=== PATIENT | male | born 1955 | race Caucasian/White ===

== ENCOUNTER 2024-12-19 18:09 | Emergency (ER) | payer MEDICARE ==
[~2024-12-19] VITALS: Ht 172.7 cm; Wt 56.2 kg
[2024-12-19] MEDS ORDERED: APIX5TAB5 PEG (20:05)
[2024-12-19] MEDS ORDERED: DILT90TA PO (20:08)
[2024-12-19] MEDS ORDERED: DORZ10DR10 LEFTEYE (20:10)
[2024-12-19] MEDS ORDERED: DORZ10DR10 RIGHTEYE (20:10)
[2024-12-19] MEDS ORDERED: FURO-149 IV (20:13)
--- NOTE | 2024-12-19 20:14 | Physician Documentation ---
History of Present Illness ~ Chief Complaint: Shoulder pain Stated Complaint: SHOULDER DISLOCATION Time Seen by MD: 20:13 HPI Patient presents to the emergency room sent from [facility] for dislocated left shoulder. This is reported to has been from a fall several days ago. He was sent from [place] to [facility] from this said fall however he states no x-ray was performed. He states that he was change sign on a tree when he fell causing his injury however when nurse asked him about this he said he was 14 years old with an happened. Medication Reconciliation Allergies: Coded Allergies: Penicillins (Verified Allergy, Unknown, 12/19/24) Scheduled Apixaban (Eliquis), 1 TAB PEG BID, (Reported) Diltiazem HCl (Diltiazem HCl), 1 TAB PO QID, (Reported) Dorzolamide HCl/Timolol Maleat (Dorzolamide-Timolol Eye Drops), 1 DROP RIGHTEYE Q12H, (Reported) Dorzolamide HCl/Timolol Maleat (Dorzolamide-Timolol Eye Drops), 1 DROP LEFTEYE Q12H, (Reported) Furosemide (Lasix), 40 MG IV BID, (Reported) Lansoprazole (Lansoprazole), 1 TAB PO DAILY, (Reported) Latanoprost (XALATAN ophth drops), 1 DROP OP HS, (Reported) Review of Systems ROS All review of systems negative except as per HPI Physical Exam Vital Signs: Temperature: 98.5, Source: Oral, Heart Rate: 81, Respiratory Rate: 18, BP: 108/75, Pulse Oximetry: 98, Weight: 56.200 Oxygen Flow Rate: 2.0 Physical Exam General: Patient is awake, alert, cooperative in mild distress Head: Normocephalic and atraumatic. Eyes: Conjunctival normal. EOMI. PERRL. ENT: Mucous membranes moist. Neck: Supple, trachea is midline. Chest: Clear to auscultation bilaterally without rales, rhonchi, or wheezes. There is no accessory muscle use or retractions. Cardiac: RRR without murmurs, gallops, or rubs. Extremities: Patient has a ecchymosis to the anterior of his left shoulder diffusely as well as deformity noted to his left collarbone and pain with any manipulation of his left arm. No evidence of head trauma. Progress Progress Note We spoke with Raegan and they state that he initially fell out of a tree November 21 and required intubation. He was sent to [facility] on the . He was then extubated three days ago and since that time he has been talking about left shoulder pain and which time they performed the x-ray showing dislocation. Viibryd denies any falls. Results/Orders Results/Orders Orders - BUBBA YEE MD Shoulder, Complete (Min 2 Vws) (12/19/24 20:21) Clavicle (12/19/24 20:21) Urinalysis, Cult If Indicated (12/19/24 20:39) Ct Head (12/19/24 20:39) Ct Upper Extremities (12/19/24 20:39) Completed Orders - BUBBA YEE MD Shoulder, Complete (Min 2 Vws) (12/19/24 20:21) Clavicle (12/19/24 20:21) Acetaminophen 1,000mg/100ml Iv (Ofirmev (12/19/24 20:40) Ketorolac Trometh 15mg/Ml Vial (Toradol (12/19/24 20:40) Cbc/Diff (12/19/24 20:39) Ct Head (12/19/24 20:39) Hs Troponin I W Calculations (12/19/24 20:39) CMP (12/19/24 20:39) Ct Upper Extremities (12/19/24 20:39) Normal Saline 1000ml (0.9% Sodium Chlori (12/19/24 21:35) Diltiazem Tablet (Cardizem Tablet) (12/19/24 22:25) Medications Received in ER Medications (Trade) Dose Ordered Sig/Philip Route PRN Reason Start Time Stop Time Status Last Admin Dose Admin Acetaminophen 100 ml @ 400 mls/hr ONCE ONCE IV 12/19/24 20:40 12/19/24 20:54 DC 12/19/24 21:09 400 MLS/HR (Toradol injection) 15 mg ONCE ONCE IV 12/19/24 20:40 12/19/24 20:50 DC 12/19/24 21:09 15 MG Sodium Chloride 1,000 ml @ 1,000 mls/hr ONCE ONCE IV 12/19/24 21:35 12/19/24 22:34 DC 12/19/24 21:39 1,000 MLS/HR (Cardizem tablet) 90 mg ONCE ONCE PO 12/19/24 22:25 12/19/24 22:26 DC 12/19/24 22:56 90 MG Vital Signs 12/19/24 12/19/24 12/19/24 12/19/24 18:43 19:35 20:30 21:09 Temp 98.5 Pulse 81 88 91 Resp 18 19 20 18 B/P (MAP) 108/75 109/76 (87) 108/62 (77) Pulse Ox 98 98 98 O2 Flow Rate 2.0 0 0 12/19/24 12/19/24 12/19/24 21:30 22:00 23:00 Pulse 128 121 127 Resp 18 14 20 B/P (MAP) 99/72 (81) 98/62 (74) 101/69 (80) Pulse Ox 98 99 99 O2 Flow Rate 0 0 0 Laboratory Tests Test 12/19/24 20:50 White Blood Count 12.7 H Red Blood Count 3.88 L Hemoglobin 11.8 L Hematocrit 35.6 L Mean Corpuscular Volume 91.9 Mean Corpuscular Hemoglobin 30.4 Mean Corpuscular Hemoglobin Concent 33.1 Red Cell Distribution Width 16.6 H Platelet Count 394 Mean Platelet Volume 9.2 Neutrophils (%) (Auto) 69.3 Lymphocytes (%) (Auto) 15.5 L Monocytes (%) (Auto) 9.2 Eosinophils (%) (Auto) 4.9 Basophils (%) (Auto) 1.1 H Neutrophils # (Auto) 8.8 H Lymphocytes # (Auto) 2.0 Monocytes # (Auto) 1.2 H Eosinophils # (Auto) 0.6 Basophils # (Auto) 0.1 CBC Comment Sodium Level 135 Potassium Level 3.5 Chloride Level 98 L Carbon Dioxide Level 30.1 Anion Gap 7 L Blood Urea Nitrogen 24 H Creatinine 1.11 H Estimated GFR/1.73 m2 65 BUN/Creatinine Ratio 21.6 H Glucose Level 105 H Calcium Level 8.8 Total Bilirubin 0.7 Aspartate Amino Transf (AST/SGOT) 33 Alanine Aminotransferase (ALT/SGPT) 79 H Alkaline Phosphatase 196 H Troponin I High Sensitivity 27 Total Protein 7.3 Albumin 2.8 L Globulin 4.5 H Albumin/Globulin Ratio 0.6 L Chemistry Comments EKG/XRAY/CT/US/VASC/MRI CT : Impression Exam: CT UPPER EXTREMITIES INDICATION: aloc; evaluate for fracture COMPARISON: DI CLAVICLE on DOS: 12/19/24, DI SHOULDER, COMPLETE (MIN 2 VWS) on DOS: 12/19/24 TECHNIQUE: CT of the left upper extremity was performed without contrast. Volume transverse images were obtained and reconstructed in multiple planes using bone and soft tissue algorithms. Radiation Dose Information: CT Dose: CTDI volume is 15 mGy. Dose-length product is 453 mGy*cm FINDINGS: The alignment is normal. The joint spaces are normal. Comminuted acute traumatic fracture of the left scapula. Displaced acute traumatic fracture of the left midclavicle Multiple indeterminate age fracture deformities are seen involving the left lower ribs, some of which appear to be treated with surgical fixation hardware. Likely acute displaced fracture deformity is seen in 7th left 7th posterior rib. No pneumothorax is seen. Small left pleural effusion. The soft tissues are normal. IMPRESSION: 1. Comminuted acute traumatic fracture of the left scapula. 2. Displaced acute traumatic fracture of the left midclavicle. 3. Multiple indeterminate age fracture deformities are seen involving the left lower ribs, some of which appear to be treated with surgical fixation hardware. Likely acute displaced fracture deformity is seen in the left 7th posterior rib. 4. Small left pleural effusion All CT scans at this medical facility are performed using dose modulation techniques as appropriate to a performed exam including the following: Automated exposure control was utilized; adjustment of the MA and/or KV according to patient size; and use of iterative reconstruction technique. Medical Decision Making Findings Patient presented to the emergency room with reports of dislocated shoulder. Differentials include but are not limited to fractures, dislocation, soft tissue injury, ACS therefore imaging and labs ordered. Given patient's history do not feel his shoulder pain represents ACS. CT scan is negative for dislocation but patient does have a displaced clavicular fracture in his chip of his scapula noted which is likely the cause for patient's pain. CT scan of the head was performed as there was concern that he may have had a secondary fall not reported. CT of head is normal. Departure Disposition: [facility] Impression: Primary Impression: Clavicular fracture Additional Impression: Scapular fracture Condition: Stable Discharge Instructions: Shoulder Pain Additional Instructions: Imaging today showed that that has no dislocation of your shoulder but she do have a broken clavicle and scapula which was likely the cause for your pain. Speak with Dr. Joe Carlin regarding pain management. Referrals: NO PRIMARY CARE PROVIDER (PCP) Education Educated: Patient Educated regarding: diagnosis, treatment, need for follow up Signature Scribe Signature: No scribe Attestation: The note accurately reflects work and decisions made by me.Bubba Yee MD 12/20/24 00:27 BUBBA YEE MD Dec 19, 2024 20:14
[2024-12-19] MEDS ORDERED: LANS30TA10 PO (20:15)
[2024-12-19] MEDS ORDERED: XAL0.005OS OP (20:17)
--- NOTE | 2024-12-19 20:47 | RADIOLOGY REPORT ---
CLINICAL INDICATION: pain; fall LEFT TECHNIQUE: DI CLAVICLE Comparison: None FINDINGS/IMPRESSION: : Mildly displaced fracture of the proximal to mid left clavicle with slight overriding of the fracture fragments and 1 shaft width inferior position of the distal fracture fragment relative to the proxim al fracture fragment. Partially imaged left PICC and plate and multiple screw fixation of a few left ribs. Suture material in the visualized lateral left mid lung. Linear scarring in the left mid to lower lung.
--- NOTE | 2024-12-19 20:49 | RADIOLOGY REPORT ---
EXAM: DI SHOULDER, COMPLETE (MIN 2 VWS) CLINICAL HISTORY: pain LEFT COMPARISON: None TECHNIQUE: DI SHOULDER, COMPLETE (MIN 2 VWS) Findings/Impression: 2 views of the left shoulder. Moderately displaced fracture of the left midclavicle. [id number] displaced fractures of the lateral aspects of left rib 4. Mildly displaced fracture of the left scapula. There is no evidence of dislocation, blastic, or lytic lesions. Left upper extremity PICC terminates near the superior cavoatrial junction. No joint effusion or superficial soft tissue abnormalities.
[2024-12-19 20:58] LABS: MEAN PLATELET VOLUME 9.2 FL (7.4-10.4); RED CELL DISTRIBUTION WIDTH 16.6 % (11.5-14.5)
[2024-12-19] MEDS: acetaminophen 1,000mg/100ml IV 100 ML IV ONE (21:09)
[2024-12-19] MEDS: ketorolac trometh 15mg/ml vial 15 MG/ML ML IV ONE (21:09)
[2024-12-19 21:18] LABS: CREATININE 1.11 MG/DL (0.60-1.10); TOTAL CARBON DIOXIDE 30.1 MMOL/L (24-32); eCRCL 49 ML/MIN; eGFR 65 ML/MIN
[2024-12-19] MEDS: normal saline 1000ml 1,000 ML IV ONE (21:39)
[2024-12-19] MEDS: diltiazem 30mg tablet PO ONE (22:56)
--- NOTE | 2024-12-19 22:59 | RADIOLOGY REPORT ---
EXAM: CT CT HEAD INDICATION: aloc TECHNIQUE: CT of the head without intravenous contrast. Radiation Dose Information: CT Dose: CTDI volume is 58.96 mGy. Dose-length product is 1082.83 mGy*cm The dose indicators for CT are the volume Computed Tomography (CT) Dose Index (CTDIvol) and the Dose Length Product (DLP), and are measured in units of mGy and mGy-cm, respectively. These indicators are not patient dose, but values generated from the CT scanner acquisition factors. The report includes radiation exposure data for exposures received during this examination. COMPARISON: None FINDINGS: Evaluation is degraded by motion artifact. No acute territorial infarct, intracranial hemorrhage, or mass effect. There are global involutional changes with compensatory prominence of the ventricles and sulci. Patchy periventricular and subcorti jillian white matter hypoattenuation is nonspecific but may be related to small vessel ischemic disease. The orbits are normal. Small fluid within the left mastoid air cells. The paranasal sinuses and masto id air cells are otherwise clear. The osseous structures are unremarkable. IMPRESSION: 1. No acute territorial infarct, intracranial hemorrhage, or mass effect. 2. Age-related involutional changes. Chronic microvascular changes. 3. If clinical symptoms persist, MRI may be beneficial in further evaluation.
--- NOTE | 2024-12-19 23:18 | RADIOLOGY REPORT ---
INDICATION: aloc; evaluate for fracture COMPARISON: DI CLAVICLE on DOS: 12/19/24, DI SHOULDER, COMPLETE (MIN 2 VWS) on DOS: 12/19/24 TECHNIQUE: CT of the left upper extremity was performed without contrast. Volume transverse images we re obtained and reconstructed in multiple planes using bone and soft tissue algorithms. Radiation Dose Information: CT Dose: CTDI volume is 15 mGy. Dose-length product is 453 mGy*cm FINDINGS: The alignment is normal. The joint spaces are normal. Comminuted acute traumatic fracture of the left scapula. Displaced acute traumatic fracture of the left midclavicle Multiple indeterminate age fracture deformities are seen involving the left lower ribs, some of which appear to be treated with surgical fixation hardware. Likely acute displaced fracture deformity is s een in 7th left 7th posterior rib. No pneumothorax is seen. Small left pleural effusion. The soft tissues are normal. IMPRESSION: 1. Comminuted acute traumatic fracture of the left scapula. 2. Displaced acute traumatic fracture of the left midclavicle. 3. Multiple indeterminate age fracture deformities are seen involving the left lower ribs, some of wh ich appear to be treated with surgical fixation hardware. Likely acute displaced fracture deformity i s seen in the left 7th posterior rib. 4. Small left pleural effusion All CT scans at this medical facility are performed using dose modulation techniques as appropriate t o a performed exam including the following: Automated exposure control was utilized; adjustment of th e MA and/or KV according to patient size; and use of iterative reconstruction technique.
[2024-12-20] MEDS: normal saline 1000ml 1,000 ML IV ONE (00:40)
[2024-12-20] MEDS: morphine 4 MG/ML inj SYRINge IV ONE (00:49)
[2024-12-20 07:44] VITALS: BP 105/68; PULSE 65; RESP 16; TEMP 98.5; O2SAT 99
== END 2024-12-20 07:42 ==
LOC: ER 18:11
DX: S42.022A Displaced fracture of shaft of left clavicle, initial encounter for closed fracture (principal); S42.102A Fracture of unspecified part of scapula, left shoulder, initial encounter for closed fracture; R51.9 Headache, unspecified; Z88.0 Allergy status to penicillin; W19.XXXA Unspecified fall, initial encounter; Y93.89 Activity, other specified; Y92.89 Other specified places as the place of occurrence of the external cause; Y99.8 Other external cause status
CPT/HCPCS: 36415; 70450; 73000; 73030; 73200; 80053; 82948; 84484; 85025; 96361; 96365; 96366; 96375; 99285; A6590; C1758; J0131; J1885; J7030